=== PATIENT | male | born 1950 | race Caucasian/White ===

== ENCOUNTER → 2016-09-04 | Outpatient (CLI) | payer BC, MEDICARE ==
--- NOTE | 2016-09-04 17:17 | DI ---
Indication: The purpose of this study is to localize the sentinel lymph node(s) for purposes of surgical planning. Procedure:NM LYMPHOSCINTIGRAPHY-NO IMG LYMPHOSCINTIGRAPHY: Technique: After discussing the details of the procedure, including the risks, the patient wished to proceed. Informed consent was obtained. A preprocedural pause was performed to confirm the correct patient and procedure. Approximately 0. 25 mCi of Tc-99m sulfur colloid was injected intradermally in four perilesional locations on the lateral aspect of the left knee. A total of approximately 1 mCi of Tc-99m sulfur colloid was injected. The patient was then released from [facility] to obtain his imaging a different facility, as planned. Impression: 1. Technically successful perilesional injections for the purpose of lymphoscintigraphy. The patient's imaging will be obtained at a separate facility. Rajat Mike RPA/ARNEL performed this under my personal supervision. .
== END ==
LOC: IMA 07:34
PROVIDERS: ATTEND Surgery
DX: C43.9 Malignant melanoma of skin, unspecified (principal)
CPT/HCPCS: 38792; A9541